=== PATIENT | female | born 1970 | race Caucasian/White ===

== ENCOUNTER → 2021-11-24 15:33 | Outpatient (CLI) | payer BC, SELFPAY ==
--- NOTE | ~2021-11-24 | DEXA_ITS ---
Bone Density Report Name: BELA GODOY Age: 51 Sex: Female Ethnicity: White Date of : 1970 Indication: osteopenia; postmenopause Referring Provider: Olena*Amy Tidwell Study: Bone densitometry was performed. Exam Date: November 24, 2021 Accession number: [id number] Bone Density: Region BMD T-score Z-score Classification AP Spine (L1-L4) 0.716 -3.0 -2.1 Osteoporosis Femoral Neck (Left) 0.585 -2.4 -1.5 Osteopenia Total Hip (Left) 0.706 -1.9 -1.4 Osteopenia Femoral Neck (Right) 0.552 -2.7 -1.8 Osteoporosis Total Hip (Right) 0.720 -1.8 -1.3 Osteopenia Total Hip Mean 0.713 -1.9 -1.4 Osteopenia World Health Organization criteria for BMD impression classify patients as: Normal (T-score at or above -1.0), Osteopenia (T-score between -1.0 and -2.5), or Osteoporosis (T-score at or below -2.5). 10-year Fracture Risk: FRAX not reported because: Some T-score for Spine Total or Hip Total or Femoral Neck at or below -2.5 Previous Exams: Region Exam Age BMD T-score BMD Change BMD Change Date g/cm2 vs Baseline vs Previous AP Spine(L1-L4) 11/24/2021 51 0.716 -3.0 -0.217 -0.217 02/05/2009 38 0.933 -1.0 Total Hip(Left) 11/24/2021 51 0.706 -1.9 -0.090* -0.090* 02/05/2009 38 0.795 -1.2 Total Hip(Right) 11/24/2021 51 0.720 -1.8 -0.090* -0.090* 02/05/2009 38 0.810 -1.1 *Denotes significance at 95% confidence level, LSC for AP Spine = 0.022 g/cm2, LSC for Total Hip = 0.027 g/cm2 Clinical Information Provided by Patient: Patient maximum height was 64.2 Menopause Age: 49 Drinks caffeinated beverages Onset of menses at age 11 Number of children 2 Impression: The patient has osteoporosis, based on the Total Spine T-score. The BMD for the Total Hip(Left) decreased, changing by -0.090 since the last DXA exam. The BMD for the Total Hip(Right) decreased, changing by -0.090 since the last DXA exam. Discussion: HIGH RISK OF FRACTURE. BONE DENSITY IS UNDESIRABLY LOW AT ONE OR MORE SKELETAL SITES, CONSISTENT WITH OSTEOPOROSIS. ALSO, BONE DENSITY IS LOWER THAN EXPECTED FOR AGE AND SEX AT ONE OR MORE SKELETAL SITES; RECOMMEND A DILIGENT SEARCH FOR SECONDARY CAUSES OF BONE LOSS. This patient's lowest T-score meets the World Health Organization's (WHO) criteria for osteoporosis at one or more sites (T-score -2.5 or below). In untreated patients, the risk of osteoporotic fracture increases approximately
--- NOTE | ~2021-11-24 | MM_ITS ---
EXAMINATION: MM screening [facility] BI w lu[facility] HISTORY: Screening mammogram TECHNIQUE: Craniocaudal and mediolateral oblique 3-D tomosynthesis images were obtained and synthetic 2-D images were generated. CAD analysis was submitted and interpreted. COMPARISON: 01/21/2015, 10/19/2014 BREAST PARENCHYMAL COMPOSITION: There are scattered areas of fibroglandular density. FINDINGS: Scattered benign-appearing calcifications are present. There is no evidence of suspicious m ass, calcification, or architectural distortion to suggest malignancy in either breast. There has bee n no suspicious interval change. IMPRESSION: 1. No mammographic evidence of malignancy. 2. Recommend routine screening mammography in one year. BI-RADS Category 2: Benign finding(s). Reviewed, dictated and finalized at location A. SPIRAL BINDER
== END ==
PROVIDERS: Visit Provider Nurse Practitioner
DX: Z12.31 Encounter for screening mammogram for malignant neoplasm of breast (principal); Z13.820 Encounter for screening for osteoporosis; M81.0 Age-related osteoporosis without current pathological fracture; M85.852 Other specified disorders of bone density and structure, left thigh; M85.851 Other specified disorders of bone density and structure, right thigh
CPT/HCPCS: 77063; 77067; 77080

== ENCOUNTER → 2023-12-21 09:12 | Outpatient (CLI) | payer BC, SELFPAY ==
--- NOTE | ~2023-12-21 | DEXA_ITS ---
Bone Density Report Name: BELA GODOY Age: 53 Sex: Female Ethnicity: White Date of : 1970 Indication: postmenopausal osteoporosis; monitoring treatment; Referring Provider: Olena*Amy Tidwell Study: Bone densitometry was performed. Exam Date: December 21, 2023 Accession number: [id number] Bone Density: Region BMD T-score Z-score Classification AP Spine (L1-L4) 0.729 -2.9 -1.9 Osteoporosis Femoral Neck (Left) 0.575 -2.5 -1.4 Osteoporosis Total Hip (Left) 0.720 -1.8 -1.2 Osteopenia Femoral Neck (Right) 0.567 -2.5 -1.5 Osteoporosis Total Hip (Right) 0.698 -2.0 -1.4 Osteopenia Total Hip Mean 0.709 -1.9 -1.3 Osteopenia World Health Organization criteria for BMD impression classify patients as: Normal (T-score at or above -1.0), Osteopenia (T-score between -1.0 and -2.5), or Osteoporosis (T-score at or below -2.5). 10-year Fracture Risk: FRAX not reported because: Some T-score for Spine Total or Hip Total or Femoral Neck at or below -2.5 Treated for osteoporosis Previous Exams: Region Exam Age BMD T-score BMD Change BMD Change Date g/cm2 vs Baseline vs Previous AP Spine(L1-L4) 12/21/2023 53 0.729 -2.9 -0.204* 0.012 11/24/2021 51 0.716 -3.0 -0.217 -0.217 02/05/2009 38 0.933 -1.0 Total Hip(Left) 12/21/2023 53 0.720 -1.8 -0.075* 0.015 11/24/2021 51 0.706 -1.9 -0.090* -0.090* 02/05/2009 38 0.795 -1.2 Total Hip(Right) 12/21/2023 53 0.698 -2.0 -0.113* -0.022 11/24/2021 51 0.720 -1.8 -0.090* -0.090* 02/05/2009 38 0.810 -1.1 *Denotes significance at 95% confidence level, LSC for AP Spine = 0.022 g/cm2, LSC for Total Hip = 0.027 g/cm2 Clinical Information Provided by Patient: Is being treated for osteoporosis Has used the following medications: Fosamax (i.e. alendronate), Calcium Patient maximum height was 64.5 Menopause Age: 43 Drinks caffeinated beverages Onset of menses at age 11 Number of children 2 Impression: The patient has osteoporosis, based on the Total Spine T-score. No significant bone loss was observed. Discussion: PATIENT UNDER TREATMENT WITH NO SIGNIFICANT BMD LOSS SINCE LAST EXAM. In an untreated patient, BMD typically declines with age. A lack of decline or gain is usually a sign that treatment is efficacious and fracture risk is reduced. It is important to ask patients whether they are
--- NOTE | ~2023-12-21 | MM_ITS ---
EXAMINATION: MM screening [facility] BI w [facility] HISTORY: Screening mammogram TECHNIQUE: Craniocaudal and mediolateral oblique 3-D tomosynthesis images were obtained and synthetic 2-D images were generated. CAD analysis was submitted and interpreted. COMPARISON: 11/25/2021, 01/21/2015, 10/19/2014 BREAST PARENCHYMAL COMPOSITION: There are scattered areas of fibroglandular density. FINDINGS: No suspicious mass, calcification, or architectural distortion are identified in either sonja ast to suggest malignancy. There has been no suspicious interval change. IMPRESSION: 1. No mammographic evidence of malignancy. 2. Recommend routine screening mammography in one year. BI-RADS Category 1: Negative Reviewed, dictated and finalized at location A. CTOR OF DEMENTIA OPERATIONS
== END ==
PROVIDERS: PCP Nurse Practitioner; Visit Provider Nurse Practitioner
DX: Z12.31 Encounter for screening mammogram for malignant neoplasm of breast (principal); M81.0 Age-related osteoporosis without current pathological fracture; M85.852 Other specified disorders of bone density and structure, left thigh; M85.851 Other specified disorders of bone density and structure, right thigh
CPT/HCPCS: 77063; 77067; 77080

== ENCOUNTER 2024-12-22 07:22 | Outpatient (CLI) | payer BC, SELFPAY ==
--- NOTE | ~2024-12-22 | MM_ITS ---
EXAMINATION: MM screening [facility] BI w [facility] HISTORY: Screening TECHNIQUE: Craniocaudal and mediolateral oblique 3-D tomosynthesis images were obtained and synthetic 2-D images were generated. CAD analysis was submitted and interpreted. COMPARISON: Comparison to multiple prior studies sequentially, with oldest reviewed study dated 01/21. BREAST PARENCHYMAL COMPOSITION: Not dense: There are scattered areas of fibroglandular density. FINDINGS: There is no evidence of suspicious mass, calcification, or architectural distortion to sugg est malignancy in either breast. There has been no suspicious interval change. IMPRESSION: 1. No mammographic evidence of malignancy. 2. Recommend routine screening mammography in one year. BI-RADS Category 1: Negative Reviewed, dictated and finalized at location A. ITY ASSURANCE INSPECTOR
== END 2024-12-22 07:23 | disposition home or self-care (01) ==
LOC: MICIMG 07:23
PROVIDERS: PCP Nurse Practitioner; Visit Provider Nurse Practitioner
DX: Z12.31 Encounter for screening mammogram for malignant neoplasm of breast (principal)
CPT/HCPCS: 77063; 77067